=== PATIENT | male | born 1960 | race Caucasian/White ===

== ENCOUNTER 2017-04-07 22:35 | Emergency (ER) | payer OTHER, BC ==
[~2017-04-07] VITALS: Ht 175.3 cm; Wt 95.0 kg
[~2017-04-07 22:35] MED LIST: HYDR25R PR
[2017-04-07 22:37] VITALS: BP 143/88; PULSE 73; RESP 16; TEMP 97.6; O2SAT 99
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
[2017-04-07] MEDS ORDERED: TETANUS/DIPHTHERIA TOXOID ADULT 0.5 ML VIAL IM ONE (23:00)
[2017-04-07] MEDS ORDERED: LIDOCAINE HCL 1% 50 ML VIAL INFIL ONE (23:00)
== END 2017-04-07 23:59 | disposition home or self-care (01) ==
LOC: NEPD 22:35
DX: S61.512A Laceration without foreign body of left wrist, initial encounter (principal); F17.200 Nicotine dependence, unspecified, uncomplicated; W26.0XXA Contact with knife, initial encounter; Z23 Encounter for immunization
CPT/HCPCS: 12001; 90471; 90714

== ENCOUNTER 2017-04-14 23:20 | Emergency (ER) | payer BC ==
[~2017-04-14] VITALS: Ht 175.3 cm; Wt 89.0 kg
[2017-04-14 23:22] VITALS: BP 186/92; PULSE 78; RESP 16; TEMP 98.2; O2SAT 99
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
== END 2017-04-15 00:11 | disposition home or self-care (01) ==
LOC: NEPD 23:20
DX: S61.512D Laceration without foreign body of left wrist, subsequent encounter (principal); X58.XXXD Exposure to other specified factors, subsequent encounter; Z48.02 Encounter for removal of sutures
CPT/HCPCS: 99281